=== PATIENT | female | born 1980 ===

== ENCOUNTER 2022-01-11 15:53 | Outpatient (CLI) | payer OTHER | END 2022-01-11 17:11 | disposition home or self-care (01) | LOC: PRENATAL 15:53 | PROVIDERS: ATTEND Obstetrics & Gynecology Maternal & Fetal Medicine | DX: O36.80X0 Pregnancy with inconclusive fetal viability, not applicable or unspecified (principal); O09.519 Supervision of elderly primigravida, unspecified trimester; Z36.0 Encounter for antenatal screening for chromosomal anomalies; Z3A.12 12 weeks gestation of pregnancy ==

== ENCOUNTER 2022-03-07 08:15 | Outpatient (CLI) | payer OTHER | END 2022-03-07 09:25 | disposition home or self-care (01) | LOC: PRENATAL 08:15 | PROVIDERS: ATTEND Obstetrics & Gynecology Maternal & Fetal Medicine | DX: O35.9XX0 Maternal care for (suspected) fetal abnormality and damage, unspecified, not applicable or unspecified (principal); O09.519 Supervision of elderly primigravida, unspecified trimester; O35.3XX0 Maternal care for (suspected) damage to fetus from viral disease in mother, not applicable or unspecified; Z3A.20 20 weeks gestation of pregnancy ==

== ENCOUNTER 2022-05-30 13:58 | Outpatient (CLI) | payer OTHER | END 2022-05-30 15:28 | disposition home or self-care (01) | LOC: PRENATAL 13:58 | PROVIDERS: ATTEND Obstetrics & Gynecology Maternal & Fetal Medicine | DX: O35.9XX0 Maternal care for (suspected) fetal abnormality and damage, unspecified, not applicable or unspecified (principal); O09.519 Supervision of elderly primigravida, unspecified trimester; O36.8199 Decreased fetal movements, unspecified trimester, other fetus; Z3A.32 32 weeks gestation of pregnancy ==

== ENCOUNTER 2022-07-14 13:15 | Inpatient (IN) | payer OTHER ==
[~2022-07-14] VITALS: Ht 157.5 cm; Wt 3.2 kg
[2022-07-15] MEDS ORDERED: PRENATABS RX T1 EACH PO (11:01)
== END 2022-07-19 13:28 | disposition home or self-care (01) | DRG 788 ==
LOC: LDR 07-15 10:46 → OB/GYN 07-16 02:26
PROVIDERS: Obstetrics & Gynecology; ADMIT Obstetrics & Gynecology; ATTEND Obstetrics & Gynecology
PROC: 3E033VJ Introduction of Other Hormone into Peripheral Vein, Percutaneous Approach (ICD-10-PCS; 2022-07-15)
PROC: 4A1HXCZ Monitoring of Products of Conception, Cardiac Rate, External Approach (ICD-10-PCS; 2022-07-15)
PROC: 3E0P7VZ Introduction of Hormone into Female Reproductive, Via Natural or Artificial Opening (ICD-10-PCS; 2022-07-16)
PROC: 10D00Z1 Extraction of Products of Conception, Low, Open Approach (ICD-10-PCS; principal; 2022-07-16 07:00)
DX: O61.0 Failed medical induction of labor (principal); O62.0 Primary inadequate contractions; O62.1 Secondary uterine inertia; O14.14 Severe pre-eclampsia complicating childbirth; Z3A.38 38 weeks gestation of pregnancy; Z37.0 Single live birth; Z20.822 Contact with and (suspected) exposure to COVID-19